=== PATIENT | male | born 1935 | race Caucasian/White ===

== ENCOUNTER 2016-10-29 12:11 | Emergency (ER) | payer OTHER, BC ==
[~2016-10-29] VITALS: Ht 167.6 cm; Wt 70.9 kg
[~2016-10-29 12:11] MED LIST: AMANTADINE100 M1 PO; AMANTADINE100 MG PO; AMLODIPINE BES2.5 MG PO; ASPIR-LOW81 MG PO; BENAZEPRIL HCL10 MG PO; CARBIDOPA-LEVO1 EAC7 PO; CARBIDOPA/LEVO1 EACH PO; CELEXA20 MG PO; CELEXA40 MG PO; CYMBALTA20 MG PO; DOLACET 5/5001 EACH PO; FINASTERIDE5 MG PO; FLOMAX0.4 MG PO; FLOVENT 22120 INHALA IH; HYDROCODON-ACE1 EAC7 PO; HYDROXYCHLOROQ200 MG PO; IBUPROFEN800 MG PO; LOTREL 2.5/1 CAPSULE PO; PRAVACHOL40 MG PO; PROAIR HFA8.5 GM IH; PROSCAR5 MG; PROTONIX40 MG PO; RANITIDINE HCL300 MG PO; TAMSULOSIN HCL0.4 MG PO; TERAZOSIN HCL2 MG PO; XALATAN2.5 ML BOTH EYES
[2016-10-29] MEDS ORDERED: NORCO 5/3251 TABLET PO (16:04)
[2016-10-29 16:31] VITALS: BP 127/55
== END 2016-10-29 16:32 | disposition home or self-care (01) ==
LOC: EME 12:11
DX: S00.83XA Contusion of other part of head, initial encounter (principal); S09.90XA Unspecified injury of head, initial encounter; M25.521 Pain in right elbow; M25.511 Pain in right shoulder; W10.9XXA Fall (on) (from) unspecified stairs and steps, initial encounter; R07.81 Pleurodynia; J44.9 Chronic obstructive pulmonary disease, unspecified; I10 Essential (primary) hypertension; K21.9 Gastro-esophageal reflux disease without esophagitis; Z87.891 Personal history of nicotine dependence
CPT/HCPCS: 70450; 71101; 73030; 73080; 99281; 99283

== ENCOUNTER 2016-12-10 16:32 | Inpatient (IN) | payer OTHER, BC ==
[~2016-12-10] VITALS: Ht 167.6 cm; Wt 74.4 kg
[~2016-12-10 16:32] MED LIST changes: -CARBIDOPA-LEVO1 EAC7 PO; +NORCO 5/3251 TABLET PO; +SINEMET CR 50-1 EACH PO
[2016-12-10 19:11] LABS: BASOPHIL COUNT 0.1 K/uL (0-0.1); EOSINOPHIL (%) 6.6 % (0-5); EOSINOPHIL COUNT 0.4 K/uL (0-0.3); HEMATOCRIT 30.1 % (38.0-50.0); IMMATURE GRANULOCYTE (%) 1.1 % (0.0-0.7); IMMATURE GRANULOCYTE COUNT 0.1 K/uL; INSTRUMENT ABS NEUTROPHIL CT 3.9 K/uL; LYMPHOCYTE COUNT 0.8 K/uL (1.0-2.8); MCHC 35.5 G/DL (30.0-36.0); MCV 90.1 FL (86-99); MONOCYTE (%) 8.5 % (3-12); MONOCYTE COUNT 0.5 K/uL (0-0.8); NEUTROPHIL (%) 68.7 % (45-76); NEUTROPHIL COUNT 3.9 K/uL (1.8-6.4); PLATELET COUNT 95 K/uL (156-360); RBC DIS.WIDTH-CV 16.6 % (11.8-14.6); RBC DIS.WIDTH-SD 54.5 % (39-53); RED BLOOD COUNT 3.34 M/uL (4.00-5.50); WHITE BLOOD COUNT 5.6 K/uL (4.1-10.2)
[2016-12-10 19:22] LABS: CHLORIDE 100 mEq/L (99-109); GLUCOSE 121 mg/dL (70-99); POTASSIUM 4.6 mEq/L (3.7-5.4); SODIUM 131 mEq/L (136-147)
[2016-12-10 19:24] LABS: ANION GAP 9 MEQ/L (2-14); TOTAL BILIRUBIN 8.3 mg/dL (0.0-1.0)
[2016-12-10 19:26] LABS: ALKALINE PHOSPHATASE 575 IU/L (3-129); GFR ESTIMATE (CALCULATED) > 59 mL/min/
[2016-12-10 19:27] LABS: UREA NITROGEN (BUN) 24 mg/dL (9-23)
[2016-12-10 20:24] LABS: BILIRUBIN SMALL; BLOOD SMALL; COLOR AMBER ((YELLOW)); GLUCOSE (STRIP) NEGATIVE; KETONES NEGATIVE; LEUKOCYTES NEGATIVE; NITRITE NEGATIVE; PROTEIN (STRIP) 100; SPECIFIC GRAVITY 1.013 (1.000-1.030)
[2016-12-10 20:32] LABS: UCUL ADDED? NO
[2016-12-10 20:34] LABS: ADD MIUA? YES
[2016-12-10 21:18] LABS: LIPASE < 3.0 U/L (1.0-51.0)
[2016-12-10 21:36] LABS: SAMPLE HEMOLYSIS CHECK 1; SAMPLE ICTERIC CHECK 2; SAMPLE LIPEMIA CHECK 0
[2016-12-10] MEDS ORDERED: TRAVATAN Z5 ML RIGHT EYE (22:30)
[2016-12-10] MEDS ORDERED: ADULT LOW DOSE81 M1 PO (22:30)
[2016-12-10] MEDS ORDERED: PRAVACHOL40 MG PO (22:31)
[2016-12-10] MEDS ORDERED: ERYTHROMYC1 APPLICAT RIGHT EYE (22:33)
[2016-12-10] MEDS ORDERED: FLONASE16 G1 BOTH NARES (22:44)
[2016-12-11 07:14] LABS: INTER. NORMALIZED RATIO 1.1; PROTHROMBIN TIME 12.1 SEC (10.2-12.9)
[2016-12-11 07:59] VITALS: BP 155/67; BP 171/67
[2016-12-11 08:13] LABS: HEMATOCRIT 29.6 % (38.0-50.0); MCH 32.1 PG (29.0-34.0); MCHC 36.1 G/DL (30.0-36.0); MCV 88.9 FL (86-99); MEAN PLAT.VOLUME 12.1 uM^3 (9.0-12.4); PLATELET COUNT 81 K/uL (156-360); RED BLOOD COUNT 3.33 M/uL (4.00-5.50); WHITE BLOOD COUNT 5.6 K/uL (4.1-10.2)
[2016-12-11 08:49] LABS: ALKALINE PHOSPHATASE 464 IU/L (3-129); ANION GAP 7 MEQ/L (2-14); CHLORIDE 102 MEQ/L (99-109); DIRECT BILIRUBIN 5.6 mg/dL (0.0-0.3); GFR ESTIMATE (CALCULATED) > 59 mL/min/; GLUCOSE 101 mg/dL (70-99); POTASSIUM 3.8 MEQ/L (3.7-5.4); SAMPLE HEMOLYSIS CHECK 0; SAMPLE ICTERIC CHECK 2; SAMPLE LIPEMIA CHECK 0; SODIUM 135 MEQ/L (136-147); TOTAL BILIRUBIN 8.8 MG/DL (0.0-1.0); UREA NITROGEN (BUN) 19 mg/dL (9-23)
[2016-12-11 11:43] VITALS: BP 114/55
[2016-12-11 15:49] LABS: ANTI-HEPATITIS A VIRUS (IGM) Nonreactive; HAV INDEX 0.15; HBSG INDEX 0.16; HPCA INDEX 0.16
[2016-12-11 15:51] VITALS: BP 157/67
[2016-12-11 15:51] LABS: ANTI-HEPATITIS B CORE (IGM) Nonreactive; HBC IgM INDEX 0.05
[2016-12-11 18:29] VITALS: BP 114/67
[2016-12-12] VITALS (7 sets, daily range): BP systolic 116–177; BP diastolic 57–80
[2016-12-12 07:58] LABS: BASOPHIL COUNT 0.1 K/uL (0-0.1); EOSINOPHIL (%) 7.5 % (0-5); EOSINOPHIL COUNT 0.4 K/uL (0-0.3); HEMATOCRIT 28.5 % (38.0-50.0); IMM.RETIC FRACTION 7.6 % (3-19); IMMATURE GRANULOCYTE (%) 0.7 % (0.0-0.7); INSTRUMENT ABS NEUTROPHIL CT 3.9 K/uL; LYMPHOCYTE COUNT 0.9 K/uL (1.0-2.8); MCH 31.7 PG (29.0-34.0); MCHC 34.7 G/DL (30.0-36.0); MCV 91.3 FL (86-99); MEAN PLAT.VOLUME 11.3 uM^3 (9.0-12.4); MONOCYTE COUNT 0.5 K/uL (0-0.8); NEUTROPHIL (%) 67.1 % (45-76); NEUTROPHIL COUNT 3.9 K/uL (1.8-6.4); PLATELET COUNT 86 K/uL (156-360); RBC DIS.WIDTH-CV 17.2 % (11.8-14.6); RED BLOOD COUNT 3.12 M/uL (4.00-5.50); RETIC HGB EQUIVALENT 37.4 (28-36); RETICULOCYTE COUNT 3.1 % (0.5-1.8); WHITE BLOOD COUNT 5.8 K/uL (4.1-10.2)
[2016-12-12 08:32] LABS: ALKALINE PHOSPHATASE 490 IU/L (3-129); ANION GAP 7 MEQ/L (2-14); CHLORIDE 100 MEQ/L (99-109); GFR ESTIMATE (CALCULATED) > 59 mL/min/; GLUCOSE 102 mg/dL (70-99); LACTATE DEHYDROGENASE 105 IU/L (20-246); POTASSIUM 3.7 MEQ/L (3.7-5.4); SAMPLE HEMOLYSIS CHECK 0; SAMPLE ICTERIC CHECK 2; SAMPLE LIPEMIA CHECK 0; SODIUM 134 MEQ/L (136-147); UREA NITROGEN (BUN) 24 mg/dL (9-23)
[2016-12-12 08:33] LABS: TOTAL BILIRUBIN 11.2 MG/DL (0.0-1.0)
[2016-12-13 06:58] LABS: ALKALINE PHOSPHATASE 438 IU/L (3-129); ANION GAP 7 MEQ/L (2-14); CHLORIDE 99 MEQ/L (99-109); GFR ESTIMATE (CALCULATED) > 59 mL/min/; GLUCOSE 100 mg/dL (70-99); POTASSIUM 3.8 MEQ/L (3.7-5.4); SAMPLE HEMOLYSIS CHECK 0; SAMPLE ICTERIC CHECK 2; SAMPLE LIPEMIA CHECK 0; SODIUM 132 MEQ/L (136-147); UREA NITROGEN (BUN) 25 mg/dL (9-23)
[2016-12-13 07:00] LABS: TOTAL BILIRUBIN 7.7 MG/DL (0.0-1.0)
[2016-12-13 08:15] VITALS: BP 123/70
[2016-12-13 11:26] VITALS: BP 136/60
[2016-12-13 16:28] LABS: HAPTOGLOBIN+ 80 mg/dL (43-212)
[2016-12-14 00:14] VITALS: BP 130/62
[2016-12-14 04:20] VITALS: BP 130/60
[2016-12-14 07:13] LABS: ALKALINE PHOSPHATASE 347 IU/L (3-129); ANION GAP 8 MEQ/L (2-14); CHLORIDE 102 MEQ/L (99-109); GFR ESTIMATE (CALCULATED) > 59 mL/min/; GLUCOSE 85 mg/dL (70-99); SAMPLE HEMOLYSIS CHECK 0; SAMPLE ICTERIC CHECK 2; SAMPLE LIPEMIA CHECK 0; SODIUM 134 MEQ/L (136-147); TOTAL BILIRUBIN 6.7 MG/DL (0.0-1.0); UREA NITROGEN (BUN) 23 mg/dL (9-23)
[2016-12-14 07:24] VITALS: BP 145/67
[2016-12-14 11:57] VITALS: BP 140/68
[2016-12-14 20:24] VITALS: BP 141/63
[2016-12-14 23:19] VITALS: BP 149/70
[2016-12-15 06:11] LABS: HEMATOCRIT 27.8 % (38.0-50.0); MCH 32.7 PG (29.0-34.0); MCHC 34.5 G/DL (30.0-36.0); MCV 94.6 FL (86-99); MEAN PLAT.VOLUME 12.3 uM^3 (9.0-12.4); PLATELET COUNT 105 K/uL (156-360); RBC DIS.WIDTH-CV 16.1 % (11.8-14.6); RBC DIS.WIDTH-SD 55.2 % (39-53); RED BLOOD COUNT 2.94 M/uL (4.00-5.50); WHITE BLOOD COUNT 7.3 K/uL (4.1-10.2)
[2016-12-15 06:42] LABS: ALKALINE PHOSPHATASE 332 IU/L (3-129); ANION GAP 6 MEQ/L (2-14); CHLORIDE 102 MEQ/L (99-109); GFR ESTIMATE (CALCULATED) > 59 mL/min/; POTASSIUM 3.9 MEQ/L (3.7-5.4); SAMPLE HEMOLYSIS CHECK 0; SAMPLE ICTERIC CHECK 2; SAMPLE LIPEMIA CHECK 0; SODIUM 133 MEQ/L (136-147); TOTAL BILIRUBIN 6.6 MG/DL (0.0-1.0); UREA NITROGEN (BUN) 23 mg/dL (9-23)
[2016-12-15 06:46] LABS: GLUCOSE 110 mg/dL (70-99)
[2016-12-15 07:22] VITALS: BP 169/74
[2016-12-15 11:57] VITALS: BP 134/61
[2016-12-15 15:55] VITALS: BP 160/71
[2016-12-16 00:07] VITALS: BP 146/68
[2016-12-16 01:00] VITALS: BP 152/69
[2016-12-16 06:19] LABS: BASOPHIL COUNT 0.1 K/uL (0-0.1); EOSINOPHIL (%) 2.5 % (0-5); EOSINOPHIL COUNT 0.3 K/uL (0-0.3); HEMATOCRIT 28.3 % (38.0-50.0); IMMATURE GRANULOCYTE (%) 0.6 % (0.0-0.7); IMMATURE GRANULOCYTE COUNT 0.1 K/uL; INSTRUMENT ABS NEUTROPHIL CT 8.3 K/uL; LYMPHOCYTE COUNT 0.9 K/uL (1.0-2.8); MCH 33.2 PG (29.0-34.0); MCHC 34.6 G/DL (30.0-36.0); MCV 95.9 FL (86-99); MEAN PLAT.VOLUME 11.9 uM^3 (9.0-12.4); MONOCYTE (%) 6.8 % (3-12); MONOCYTE COUNT 0.7 K/uL (0-0.8); NEUTROPHIL (%) 80.8 % (45-76); NEUTROPHIL COUNT 8.3 K/uL (1.8-6.4); PLATELET COUNT 109 K/uL (156-360); RBC DIS.WIDTH-CV 15.6 % (11.8-14.6); RED BLOOD COUNT 2.95 M/uL (4.00-5.50); WHITE BLOOD COUNT 10.2 K/uL (4.1-10.2)
[2016-12-16 06:47] LABS: ALKALINE PHOSPHATASE 324 IU/L (3-129); ANION GAP 8 MEQ/L (2-14); CHLORIDE 102 MEQ/L (99-109); GFR ESTIMATE (CALCULATED) > 59 mL/min/; GLUCOSE 95 mg/dL (70-99); POTASSIUM 3.7 MEQ/L (3.7-5.4); SAMPLE HEMOLYSIS CHECK 0; SAMPLE ICTERIC CHECK 1; SAMPLE LIPEMIA CHECK 0; SODIUM 134 MEQ/L (136-147); TOTAL BILIRUBIN 5.9 MG/DL (0.0-1.0); UREA NITROGEN (BUN) 14 mg/dL (9-23)
[2016-12-16 07:46] VITALS: BP 168/68
[2016-12-16 16:09] VITALS: BP 157/66
[2016-12-16 21:39] VITALS: BP 160/62
[2016-12-16 23:20] VITALS: BP 116/58
[2016-12-17 09:02] VITALS: BP 147/66
[2016-12-17 09:06] LABS: EOSINOPHIL (%) 2.2 % (0-5); EOSINOPHIL COUNT 0.2 K/uL (0-0.3); HEMATOCRIT 28.6 % (38.0-50.0); MCH 33.8 PG (29.0-34.0); MCHC 34.3 G/DL (30.0-36.0); MCV 98.6 FL (86-99); MEAN PLAT.VOLUME 11.7 uM^3 (9.0-12.4); MONOCYTE COUNT 0.8 K/uL (0-0.8); NEUTROPHIL (%) 77.4 % (45-76); NEUTROPHIL COUNT 7.2 K/uL (1.8-6.4); PLATELET COUNT 126 K/uL (156-360); RBC DIS.WIDTH-CV 14.6 % (11.8-14.6); RBC DIS.WIDTH-SD 53.3 % (39-53); WHITE BLOOD COUNT 9.3 K/uL (4.1-10.2)
[2016-12-17 09:07] LABS: BASOPHIL COUNT 0.1 K/uL (0-0.1); IMMATURE GRANULOCYTE COUNT 0.1 K/uL; INSTRUMENT ABS NEUTROPHIL CT 7.2 K/uL
[2016-12-17 09:30] LABS: ALKALINE PHOSPHATASE 280 IU/L (3-129); ANION GAP 7 MEQ/L (2-14); CHLORIDE 104 MEQ/L (99-109); GFR ESTIMATE (CALCULATED) > 59 mL/min/; GLUCOSE 138 mg/dL (70-99); POTASSIUM 3.5 MEQ/L (3.7-5.4); SAMPLE HEMOLYSIS CHECK 1; SAMPLE ICTERIC CHECK 1; SAMPLE LIPEMIA CHECK 0; SODIUM 136 MEQ/L (136-147); TOTAL BILIRUBIN 5.1 MG/DL (0.0-1.0); UREA NITROGEN (BUN) 14 mg/dL (9-23)
[2016-12-17 12:21] VITALS: BP 118/56
[2016-12-17 16:29] VITALS: BP 128/58
== END 2016-12-17 19:47 | disposition home health service (06) | DRG 445 ==
LOC: EME 16:32 → EDOF 12-11 00:43 → 5EAST 12-11 00:43 → ENRESERV 12-11 00:46 → EDOF 12-11 07:39 → ENRESERV 12-11 15:29 → 5EAST 12-11 17:52
PROVIDERS: Hospitalist; Physician Assistant; Specialist; Student in an Organized Health Care Education/Training Program
DX: K83.1 Obstruction of bile duct (principal); N17.9 Acute kidney failure, unspecified; R16.0 Hepatomegaly, not elsewhere classified; G20 Parkinson's disease; I10 Essential (primary) hypertension; J44.9 Chronic obstructive pulmonary disease, unspecified; G47.30 Sleep apnea, unspecified; K76.0 Fatty (change of) liver, not elsewhere classified; M06.9 Rheumatoid arthritis, unspecified; Z87.891 Personal history of nicotine dependence; Z91.19 Patient's noncompliance with other medical treatment and regimen; N40.0 Benign prostatic hyperplasia without lower urinary tract symptoms; D69.59 Other secondary thrombocytopenia; E87.1 Hypo-osmolality and hyponatremia; K75.9 Inflammatory liver disease, unspecified; K21.9 Gastro-esophageal reflux disease without esophagitis; Z90.49 Acquired absence of other specified parts of digestive tract
CPT/HCPCS: 36415; 71250; 74177; 74183; 74328; 76705; 80048; 80053; 80074; 80076; 81003; 82140; 83010 90; 83540 GA; 83615; 83690; 85025; 85025 91; 85027; 85045; 85610; 85730; 86301 90; 87081; 88305; 88342 TC; 94640; 94640 76; 99281; 99285; C1757; C2625; G0480; J0330; J0744; J2405; J3010; J7030

== ENCOUNTER 2016-12-23 13:07 | Emergency (ER) | payer OTHER, BC ==
[~2016-12-23] VITALS: Ht 165.1 cm; Wt 79.0 kg
[~2016-12-23 13:07] MED LIST changes: +ADULT LOW DOSE81 M1 PO; +ERYTHROMYC1 APPLICAT RIGHT EYE; +FLONASE16 G1 BOTH NARES; +TRAVATAN Z5 ML RIGHT EYE
[2016-12-23 15:26] LABS: BASOPHIL COUNT 0.1 K/uL (0-0.1); EOSINOPHIL (%) 1.8 % (0-5); EOSINOPHIL COUNT 0.2 K/uL (0-0.3); HEMATOCRIT 31.1 % (38.0-50.0); IMMATURE GRANULOCYTE (%) 0.6 % (0.0-0.7); IMMATURE GRANULOCYTE COUNT 0.1 K/uL; INSTRUMENT ABS NEUTROPHIL CT 6.5 K/uL; LYMPHOCYTE COUNT 1.3 K/uL (1.0-2.8); MCH 32.7 PG (29.0-34.0); MCHC 34.1 G/DL (30.0-36.0); MEAN PLAT.VOLUME 10.8 uM^3 (9.0-12.4); MONOCYTE (%) 9.8 % (3-12); MONOCYTE COUNT 0.9 K/uL (0-0.8); NEUTROPHIL (%) 72.3 % (45-76); NEUTROPHIL COUNT 6.5 K/uL (1.8-6.4); PLATELET COUNT 133 K/uL (156-360); RBC DIS.WIDTH-CV 13.2 % (11.8-14.6); RBC DIS.WIDTH-SD 46.3 % (39-53); RED BLOOD COUNT 3.24 M/uL (4.00-5.50)
[2016-12-23 15:31] LABS: INTER. NORMALIZED RATIO 1.3
[2016-12-23 15:34] LABS: CHLORIDE 99 mEq/L (99-109); SODIUM 133 mEq/L (136-147)
[2016-12-23 15:36] LABS: GLUCOSE 138 mg/dL (70-99)
[2016-12-23 15:37] LABS: ANION GAP 7 MEQ/L (2-14)
[2016-12-23 15:38] LABS: TOTAL BILIRUBIN 2.4 mg/dL (0.0-1.0)
[2016-12-23 15:39] LABS: ALKALINE PHOSPHATASE 249 IU/L (3-129)
[2016-12-23 15:40] LABS: GFR ESTIMATE (CALCULATED) > 59 mL/min/
[2016-12-23 15:41] LABS: UREA NITROGEN (BUN) 15 mg/dL (9-23)
[2016-12-23 15:43] LABS: LIPASE 7 U/L (1.0-51.0)
[2016-12-23 16:16] LABS: ADD MIUA? YES; BILIRUBIN NEGATIVE; BLOOD SMALL; COLOR AMBER ((YELLOW)); GLUCOSE (STRIP) NEGATIVE; KETONES 5; LEUKOCYTES NEGATIVE; NITRITE NEGATIVE; PROTEIN (STRIP) 100; SPECIFIC GRAVITY 1.018 (1.000-1.030)
[2016-12-23 16:23] LABS: BACTERIA RARE /HPF; EPITHELIAL CELLS NONE SEEN /HPF; MUCUS TRACE /LPF; UCUL ADDED? NO; WHITE BLOOD CELLS 0-5 /HPF (0-5)
[2016-12-23 18:56] VITALS: BP 134/57
== END 2016-12-23 19:00 ==
LOC: EME 13:07
PROVIDERS: Emergency Medicine
DX: R50.9 Fever, unspecified (principal); Z98.890 Other specified postprocedural states; I10 Essential (primary) hypertension; J44.9 Chronic obstructive pulmonary disease, unspecified; K21.9 Gastro-esophageal reflux disease without esophagitis; E78.5 Hyperlipidemia, unspecified; F32.9 Major depressive disorder, single episode, unspecified; F41.9 Anxiety disorder, unspecified; G20 Parkinson's disease; Z87.891 Personal history of nicotine dependence; Z90.49 Acquired absence of other specified parts of digestive tract
CPT/HCPCS: 71010; 80053; 81003; 83605; 83690; 85025; 85610; 99281; 99284

== ENCOUNTER → 2017-01-14 | Outpatient (CLI) | payer OTHER, BC ==
[~2017-01-14] VITALS: Ht 160 cm; Wt 64.5 kg
== END | disposition home or self-care (01) ==
LOC: OPR 09:40 → EDSTATUS 10:00 → OPR 10:00
PROC: BF111ZZ Fluoroscopy of Biliary and Pancreatic Ducts using Low Osmolar Contrast (ICD-10-PCS; principal; 2017-01-14)
PROC: 0FH Hepatobiliary System and Pancreas, Insertion (ICD-10-PCS; principal; 2017-01-14)
PROC: 0FB13ZX Excision of Right Lobe Liver, Percutaneous Approach, Diagnostic (ICD-10-PCS; principal; 2017-01-14)
DX: R16.0 Hepatomegaly, not elsewhere classified (principal); I10 Essential (primary) hypertension; K21.9 Gastro-esophageal reflux disease without esophagitis; G20 Parkinson's disease; M06.9 Rheumatoid arthritis, unspecified; G47.30 Sleep apnea, unspecified; Z86.19 Personal history of other infectious and parasitic diseases; Z87.11 Personal history of peptic ulcer disease; Z95.828 Presence of other vascular implants and grafts; Z87.891 Personal history of nicotine dependence; Z82.49 Family history of ischemic heart disease and other diseases of the circulatory system; Z91.040 Latex allergy status; Z88.8 Allergy status to other drugs, medicaments and biological substances; J44.9 Chronic obstructive pulmonary disease, unspecified; N40.0 Benign prostatic hyperplasia without lower urinary tract symptoms; I25.10 Atherosclerotic heart disease of native coronary artery without angina pectoris; K86.1 Other chronic pancreatitis
CPT/HCPCS: 77012; 88307; J3010

== ENCOUNTER → 2017-02-10 | Outpatient (CLI) | payer OTHER, BC ==
[~2017-02-10] VITALS: Ht 160 cm; Wt 64.5 kg
== END | disposition home or self-care (01) ==
LOC: AMB 08:00
DX: K83.1 Obstruction of bile duct (principal); C22.1 Intrahepatic bile duct carcinoma; Z90.49 Acquired absence of other specified parts of digestive tract
CPT/HCPCS: 74328; 87081; C1769; J0330; J1100; J2405; J3010

== ENCOUNTER 2017-02-20 14:57 | Inpatient (IN) | payer OTHER, BC ==
[~2017-02-20] VITALS: Ht 165.1 cm; Wt 65.3 kg
[2017-02-20 00:30] VITALS: BP 174/69
[2017-02-20 16:51] LABS: BASOPHIL COUNT 0.1 K/uL (0-0.1); EOSINOPHIL (%) 0.8 % (0-5); EOSINOPHIL COUNT 0.1 K/uL (0-0.3); HEMATOCRIT 26.7 % (38.0-50.0); IMMATURE GRANULOCYTE (%) 0.7 % (0.0-0.7); IMMATURE GRANULOCYTE COUNT 0.1 K/uL; INSTRUMENT ABS NEUTROPHIL CT 12.8 K/uL; LYMPHOCYTE COUNT 1.7 K/uL (1.0-2.8); MCH 31.1 PG (29.0-34.0); MCHC 33.7 G/DL (30.0-36.0); MCV 92.4 FL (86-99); MEAN PLAT.VOLUME 10.2 uM^3 (9.0-12.4); MONOCYTE (%) 8.1 % (3-12); MONOCYTE COUNT 1.3 K/uL (0-0.8); NEUTROPHIL (%) 79.6 % (45-76); NEUTROPHIL COUNT 12.8 K/uL (1.8-6.4); PLATELET COUNT 149 K/uL (156-360); RBC DIS.WIDTH-CV 12.4 % (11.8-14.6); RBC DIS.WIDTH-SD 42.5 % (39-53); RED BLOOD COUNT 2.89 M/uL (4.00-5.50); WHITE BLOOD COUNT 16.1 K/uL (4.1-10.2)
[2017-02-20 17:02] LABS: CHLORIDE 98 mEq/L (99-109); POTASSIUM 4.2 mEq/L (3.7-5.4); SODIUM 131 mEq/L (136-147)
[2017-02-20 17:05] LABS: GLUCOSE 144 mg/dL (70-99)
[2017-02-20 17:08] LABS: ALKALINE PHOSPHATASE 276 IU/L (3-129); ANION GAP 9 MEQ/L (2-14); GFR ESTIMATE (CALCULATED) > 59 mL/min/
[2017-02-20 17:09] LABS: UREA NITROGEN (BUN) 22 mg/dL (9-23)
[2017-02-20 17:10] LABS: DIRECT BILIRUBIN 0.7 mg/dL (0.0-0.3)
[2017-02-20 17:51] LABS: LIPASE < 3.0 U/L (1.0-51.0)
[2017-02-20 18:21] LABS: ADD MIUA? YES; BILIRUBIN NEGATIVE; BLOOD SMALL; COLOR YELLOW ((YELLOW)); GLUCOSE (STRIP) NEGATIVE; KETONES 5; LEUKOCYTES NEGATIVE; NITRITE NEGATIVE; PROTEIN (STRIP) 30; SPECIFIC GRAVITY 1.015 (1.000-1.030)
[2017-02-20 18:23] LABS: CREATINE KINASE 19 IU/L (1-294)
[2017-02-20 18:31] LABS: BACTERIA RARE /HPF; EPITHELIAL CELLS NONE SEEN /HPF; HYALINE CASTS 0-5 /LPF; MUCUS TRACE /LPF; RED BLOOD CELLS 0-5 /HPF (0-5); WHITE BLOOD CELLS 0-5 /HPF (0-5)
[2017-02-20 18:49] LABS: INFLUENZA A VIRAL ANTIGEN NEGATIVE; INFLUENZA B VIRAL ANTIGEN NEGATIVE
[2017-02-21 00:30] VITALS: BP 174/69
[2017-02-21 03:58] VITALS: BP 129/57
[2017-02-21 06:30] LABS: EOSINOPHIL (%) 0.9 % (0-5); EOSINOPHIL COUNT 0.1 K/uL (0-0.3); HEMATOCRIT 30.1 % (38.0-50.0); IMMATURE GRANULOCYTE (%) 0.6 % (0.0-0.7); IMMATURE GRANULOCYTE COUNT 0.1 K/uL; INSTRUMENT ABS NEUTROPHIL CT 9.8 K/uL; LYMPHOCYTE COUNT 0.9 K/uL (1.0-2.8); MCH 32.2 PG (29.0-34.0); MCHC 34.9 G/DL (30.0-36.0); MCV 92.3 FL (86-99); MEAN PLAT.VOLUME 10.3 uM^3 (9.0-12.4); MONOCYTE (%) 5.7 % (3-12); MONOCYTE COUNT 0.7 K/uL (0-0.8); NEUTROPHIL COUNT 9.8 K/uL (1.8-6.4); PLATELET COUNT 111 K/uL (156-360); RBC DIS.WIDTH-CV 12.5 % (11.8-14.6); RED BLOOD COUNT 3.26 M/uL (4.00-5.50); WHITE BLOOD COUNT 11.5 K/uL (4.1-10.2)
[2017-02-21 06:57] LABS: ANION GAP 9 MEQ/L (2-14); CHLORIDE 102 MEQ/L (99-109); DIRECT BILIRUBIN 0.6 mg/dL (0.0-0.3); GFR ESTIMATE (CALCULATED) > 59 mL/min/; SAMPLE HEMOLYSIS CHECK 0; SAMPLE ICTERIC CHECK 0; SAMPLE LIPEMIA CHECK 0; SODIUM 135 MEQ/L (136-147); UREA NITROGEN (BUN) 16 mg/dL (9-23)
[2017-02-21 07:13] LABS: ALKALINE PHOSPHATASE 232 IU/L (3-129); GLUCOSE 101 mg/dL (70-99); TOTAL BILIRUBIN 1.1 MG/DL (0.0-1.0)
[2017-02-21 07:54] VITALS: BP 150/67
[2017-02-21 11:29] VITALS: BP 128/55
[2017-02-21 15:52] VITALS: BP 141/60
[2017-02-21 18:01] LABS: ADD MIUA? YES; BILIRUBIN NEGATIVE; BLOOD SMALL; COLOR YELLOW ((YELLOW)); GLUCOSE (STRIP) NEGATIVE; KETONES 5; LEUKOCYTES NEGATIVE; NITRITE NEGATIVE; PROTEIN (STRIP) 30; SPECIFIC GRAVITY 1.023 (1.000-1.030)
[2017-02-21 18:09] LABS: BACTERIA RARE /HPF; EPITHELIAL CELLS RARE /HPF; MUCUS TRACE /LPF; UCUL ADDED? NO; WHITE BLOOD CELLS 0-5 /HPF (0-5)
[2017-02-21 18:48] VITALS: BP 137/63
[2017-02-22 00:29] VITALS: BP 150/65
[2017-02-22 04:00] VITALS: BP 148/36
[2017-02-22 06:12] LABS: BASOPHIL COUNT 0.1 K/uL (0-0.1); EOSINOPHIL (%) 2.2 % (0-5); EOSINOPHIL COUNT 0.2 K/uL (0-0.3); HEMATOCRIT 29.7 % (38.0-50.0); IMMATURE GRANULOCYTE (%) 0.4 % (0.0-0.7); INSTRUMENT ABS NEUTROPHIL CT 5.7 K/uL; MCH 30.9 PG (29.0-34.0); MCHC 33.7 G/DL (30.0-36.0); MCV 91.7 FL (86-99); MEAN PLAT.VOLUME 10.1 uM^3 (9.0-12.4); MONOCYTE (%) 9.2 % (3-12); MONOCYTE COUNT 0.7 K/uL (0-0.8); NEUTROPHIL (%) 74.3 % (45-76); NEUTROPHIL COUNT 5.7 K/uL (1.8-6.4); PLATELET COUNT 108 K/uL (156-360); RBC DIS.WIDTH-CV 12.2 % (11.8-14.6); RBC DIS.WIDTH-SD 41.3 % (39-53); RED BLOOD COUNT 3.24 M/uL (4.00-5.50); WHITE BLOOD COUNT 7.7 K/uL (4.1-10.2)
[2017-02-22 07:13] LABS: ANION GAP 8 MEQ/L (2-14); CHLORIDE 101 MEQ/L (99-109); GFR ESTIMATE (CALCULATED) > 59 mL/min/; GLUCOSE 109 mg/dL (70-99); POTASSIUM 3.9 MEQ/L (3.7-5.4); SAMPLE HEMOLYSIS CHECK 1; SAMPLE ICTERIC CHECK 0; SAMPLE LIPEMIA CHECK 0; SODIUM 135 MEQ/L (136-147); TOTAL BILIRUBIN 0.9 MG/DL (0.0-1.0); UREA NITROGEN (BUN) 12 mg/dL (9-23)
[2017-02-22 07:14] LABS: ALKALINE PHOSPHATASE 301 IU/L (3-129)
[2017-02-22 07:49] VITALS: BP 143/69
[2017-02-22 12:45] VITALS: BP 133/64
[2017-02-22 15:56] VITALS: BP 166/69
[2017-02-22 23:46] VITALS: BP 150/65
[2017-02-23 06:30] LABS: BASOPHIL COUNT 0.1 K/uL (0-0.1); EOSINOPHIL (%) 3.9 % (0-5); EOSINOPHIL COUNT 0.3 K/uL (0-0.3); HEMATOCRIT 31.9 % (38.0-50.0); IMMATURE GRANULOCYTE (%) 0.3 % (0.0-0.7); INSTRUMENT ABS NEUTROPHIL CT 4.5 K/uL; LYMPHOCYTE COUNT 1.3 K/uL (1.0-2.8); MCH 30.7 PG (29.0-34.0); MCHC 33.5 G/DL (30.0-36.0); MCV 91.7 FL (86-99); MEAN PLAT.VOLUME 10.4 uM^3 (9.0-12.4); MONOCYTE (%) 7.9 % (3-12); MONOCYTE COUNT 0.5 K/uL (0-0.8); NEUTROPHIL (%) 67.2 % (45-76); NEUTROPHIL COUNT 4.5 K/uL (1.8-6.4); RBC DIS.WIDTH-CV 12.1 % (11.8-14.6); RED BLOOD COUNT 3.48 M/uL (4.00-5.50); WHITE BLOOD COUNT 6.7 K/uL (4.1-10.2)
[2017-02-23 06:51] LABS: PLATELET COUNT 145 K/uL (156-360)
[2017-02-23 06:53] VITALS: BP 131/61
[2017-02-23 07:13] LABS: ANION GAP 9 MEQ/L (2-14); CHLORIDE 100 MEQ/L (99-109); GFR ESTIMATE (CALCULATED) > 59 mL/min/; GLUCOSE 121 mg/dL (70-99); POTASSIUM 3.8 MEQ/L (3.7-5.4); SAMPLE HEMOLYSIS CHECK 0; SAMPLE ICTERIC CHECK 0; SAMPLE LIPEMIA CHECK 0; SODIUM 135 MEQ/L (136-147); UREA NITROGEN (BUN) 12 mg/dL (9-23)
[2017-02-23 15:12] VITALS: BP 142/67
[2017-02-24 00:15] VITALS: BP 152/82
[2017-02-24 07:18] VITALS: BP 148/67
[2017-02-24] MEDS ORDERED: CIPROFLOXACIN500 M1 PO (11:02)
[2017-02-24] MEDS ORDERED: METRONIDAZOLE500 MG PO (11:02)
[2017-02-27] MEDS ORDERED: SYMBICORT60 INHALAT IH (15:34)
[2017-02-28] MEDS ORDERED: ASPIR-LOW81 MG PO (09:06)
== END 2017-02-24 12:42 | disposition home health service (06) | DRG 445 ==
LOC: EME 14:57 → 5SOUTH 22:14 → EDOF 22:14 → ENRESERV 22:15 → 5SOUTH 02-21 00:28 → ENPENDDIS 02-24 → 5SOUTH 02-24 12:42
PROVIDERS: Hospitalist; Internal Medicine; Physician Assistant
DX: K83.0 Cholangitis (principal); E87.1 Hypo-osmolality and hyponatremia; E83.51 Hypocalcemia; C22.1 Intrahepatic bile duct carcinoma; E78.00 Pure hypercholesterolemia, unspecified; I10 Essential (primary) hypertension; E78.5 Hyperlipidemia, unspecified; F39 Unspecified mood [affective] disorder; G20 Parkinson's disease; M06.9 Rheumatoid arthritis, unspecified; N40.0 Benign prostatic hyperplasia without lower urinary tract symptoms; J44.9 Chronic obstructive pulmonary disease, unspecified; K21.9 Gastro-esophageal reflux disease without esophagitis; F32.9 Major depressive disorder, single episode, unspecified; F41.9 Anxiety disorder, unspecified; I71.4 Abdominal aortic aneurysm, without rupture; Z87.891 Personal history of nicotine dependence
CPT/HCPCS: 36415; 71010; 74177; 80048; 80053; 80076; 81003; 82105 90; 82550; 83605; 83690; 85025; 86301 90; 87040; 87502; 87801; 94640; 94640 76; 99202; 99281; 99285; J0696; J1644; J1885; J2543; J3010; J7030; J7050; S0028; S0030

== ENCOUNTER 2017-03-16 14:12 | Inpatient (IN) | payer OTHER, BC ==
[~2017-03-16] VITALS: Ht 165.1 cm; Wt 63.6 kg
[~2017-03-16 14:12] MED LIST changes: +CIPROFLOXACIN500 M1 PO; +METRONIDAZOLE500 MG PO; +SYMBICORT60 INHALAT IH
[2017-03-16 16:43] LABS: EOSINOPHIL (%) 0 % (0-5); HEMATOCRIT 31.8 % (38.0-50.0); IMMATURE GRANULOCYTE (%) 0.5 % (0.0-0.7); IMMATURE GRANULOCYTE COUNT 0.1 K/uL; INSTRUMENT ABS NEUTROPHIL CT 9.3 K/uL; LYMPHOCYTE COUNT 0.7 K/uL (1.0-2.8); MCH 31.3 PG (29.0-34.0); MCHC 35.2 G/DL (30.0-36.0); MCV 88.8 FL (86-99); MONOCYTE (%) 9.2 % (3-12); NEUTROPHIL (%) 83.7 % (45-76); NEUTROPHIL COUNT 9.3 K/uL (1.8-6.4); RBC DIS.WIDTH-CV 12.2 % (11.8-14.6); RBC DIS.WIDTH-SD 40.2 % (39-53); RED BLOOD COUNT 3.58 M/uL (4.00-5.50); WHITE BLOOD COUNT 11.1 K/uL (4.1-10.2)
[2017-03-16 16:51] LABS: CHLORIDE 98 mEq/L (99-109); POTASSIUM 3.4 mEq/L (3.7-5.4); SODIUM 128 mEq/L (136-147)
[2017-03-16 16:53] LABS: GLUCOSE 144 mg/dL (70-99)
[2017-03-16 16:54] LABS: ANION GAP 6 MEQ/L (2-14)
[2017-03-16 16:55] LABS: TOTAL BILIRUBIN 1.1 mg/dL (0.0-1.0)
[2017-03-16 16:55] LABS: ADD MIUA? YES; BILIRUBIN NEGATIVE; BLOOD SMALL; COLOR AMBER ((YELLOW)); GLUCOSE (STRIP) NEGATIVE; KETONES 5; LEUKOCYTES NEGATIVE; NITRITE NEGATIVE; PROTEIN (STRIP) 100; SPECIFIC GRAVITY 1.018 (1.000-1.030)
[2017-03-16 16:56] LABS: ALKALINE PHOSPHATASE 283 IU/L (3-129)
[2017-03-16 16:57] LABS: GFR ESTIMATE (CALCULATED) > 59 mL/min/
[2017-03-16 16:58] LABS: UREA NITROGEN (BUN) 16 mg/dL (9-23)
[2017-03-16 16:58] LABS: BACTERIA RARE /HPF; EPITHELIAL CELLS RARE /HPF; MUCUS TRACE /LPF; RED BLOOD CELLS 20-30 /HPF (0-5); UCUL ADDED? NO; WHITE BLOOD CELLS 0-5 /HPF (0-5)
[2017-03-16 17:22] LABS: MEAN PLAT.VOLUME 10.6 uM^3 (9.0-12.4); PLAT.SUFFICIENCY DECREASED
[2017-03-16 18:05] LABS: PLATELET COUNT 107 K/uL (156-360)
[2017-03-16] MEDS ORDERED: LOW DOSE ASPIRI81 M1 PO (23:03)
[2017-03-16] MEDS ORDERED: MOTRIN800 MG PO (23:04)
[2017-03-16] MEDS ORDERED: HYDROCODON-ACE1 EAC7 PO (23:04)
[2017-03-16 23:33] LABS: BASE EXCESS 2.2 mEq/L (-3 to +3); BICARBONATE 26.5 mEq/L (22-26); CARBOXY HGB 1.4 % (0-5); COMMENTS - BLOOD GASES A+C+; DEVICE ROOM AIR; FI02 0.21 %; METHEMOGLOBIN 0.4 % (0-1.5); PCO2 39 mm Hg (35-45); PO2 76 mm Hg (80-100); SITE RR; pH 7.44 (7.35-7.45)
[2017-03-16 23:34] LABS: TOTAL RESP RATE 15 resp/min
[2017-03-16 23:58] LABS: CHLORIDE 105 mEq/L (99-109); POTASSIUM 3.5 mEq/L (3.7-5.4)
[2017-03-16 23:59] LABS: GLUCOSE 125 mg/dL (70-99)
[2017-03-17 00:01] LABS: ANION GAP 5 MEQ/L (2-14)
[2017-03-17 00:03] LABS: GFR ESTIMATE (CALCULATED) > 59 mL/min/
[2017-03-17 00:04] LABS: UREA NITROGEN (BUN) 13 mg/dL (9-23)
[2017-03-17 00:07] LABS: SODIUM 135 mEq/L (136-147)
[2017-03-17 00:23] VITALS: BP 162/95
[2017-03-17 04:09] VITALS: BP 176/74
[2017-03-17 06:08] VITALS: BP 132/72
[2017-03-17 07:19] VITALS: BP 151/69
[2017-03-17 09:22] LABS: BASOPHIL COUNT 0.1 K/uL (0-0.1); EOSINOPHIL (%) 1.4 % (0-5); EOSINOPHIL COUNT 0.1 K/uL (0-0.3); HEMATOCRIT 31.4 % (38.0-50.0); IMMATURE GRANULOCYTE (%) 0.3 % (0.0-0.7); INSTRUMENT ABS NEUTROPHIL CT 4.5 K/uL; LYMPHOCYTE COUNT 0.9 K/uL (1.0-2.8); MCH 30.7 PG (29.0-34.0); MCHC 33.8 G/DL (30.0-36.0); MEAN PLAT.VOLUME 10.6 uM^3 (9.0-12.4); MONOCYTE (%) 11.1 % (3-12); MONOCYTE COUNT 0.7 K/uL (0-0.8); NEUTROPHIL COUNT 4.5 K/uL (1.8-6.4); PLATELET COUNT 115 K/uL (156-360); RBC DIS.WIDTH-CV 12.5 % (11.8-14.6); RBC DIS.WIDTH-SD 41.2 % (39-53); RED BLOOD COUNT 3.45 M/uL (4.00-5.50); WHITE BLOOD COUNT 6.3 K/uL (4.1-10.2)
[2017-03-17 15:08] VITALS: BP 148/67
[2017-03-18 00:09] VITALS: BP 162/68
[2017-03-18 06:19] LABS: EOSINOPHIL (%) 3.4 % (0-5); EOSINOPHIL COUNT 0.2 K/uL (0-0.3); HEMATOCRIT 30.8 % (38.0-50.0); IMMATURE GRANULOCYTE (%) 0.4 % (0.0-0.7); INSTRUMENT ABS NEUTROPHIL CT 3.7 K/uL; LYMPHOCYTE COUNT 0.6 K/uL (1.0-2.8); MCH 31.4 PG (29.0-34.0); MCHC 34.1 G/DL (30.0-36.0); MCV 92.2 FL (86-99); MEAN PLAT.VOLUME 10.9 uM^3 (9.0-12.4); MONOCYTE COUNT 0.4 K/uL (0-0.8); NEUTROPHIL (%) 74.7 % (45-76); NEUTROPHIL COUNT 3.7 K/uL (1.8-6.4); PLATELET COUNT 95 K/uL (156-360); RBC DIS.WIDTH-CV 12.6 % (11.8-14.6); RBC DIS.WIDTH-SD 42.8 % (39-53); RED BLOOD COUNT 3.34 M/uL (4.00-5.50)
[2017-03-18 06:34] LABS: INTER. NORMALIZED RATIO 1.1; PROTHROMBIN TIME 12.8 SEC (10.2-12.9)
[2017-03-18 06:51] LABS: ALKALINE PHOSPHATASE 205 IU/L (3-129); ANION GAP 7 MEQ/L (2-14); CHLORIDE 104 MEQ/L (99-109); GFR ESTIMATE (CALCULATED) > 59 mL/min/; GLUCOSE 127 mg/dL (70-99); POTASSIUM 4.1 MEQ/L (3.7-5.4); SAMPLE HEMOLYSIS CHECK 0; SAMPLE ICTERIC CHECK 0; SAMPLE LIPEMIA CHECK 0; SODIUM 136 MEQ/L (136-147); TOTAL BILIRUBIN 0.5 MG/DL (0.0-1.0); UREA NITROGEN (BUN) 12 mg/dL (9-23)
[2017-03-18 07:50] VITALS: BP 167/73
[2017-03-18 16:16] VITALS: BP 148/69
[2017-03-18 23:34] VITALS: BP 161/71
[2017-03-19 06:58] LABS: MCHC 34.2 G/DL (30.0-36.0); MCV 90.6 FL (86-99); MEAN PLAT.VOLUME 10.6 uM^3 (9.0-12.4); PLATELET COUNT 123 K/uL (156-360); RBC DIS.WIDTH-CV 12.4 % (11.8-14.6); RBC DIS.WIDTH-SD 41.1 % (39-53); RED BLOOD COUNT 3.42 M/uL (4.00-5.50); WHITE BLOOD COUNT 5.2 K/uL (4.1-10.2)
[2017-03-19 07:09] VITALS: BP 172/73
[2017-03-19 07:18] LABS: ANION GAP 10 MEQ/L (2-14); CHLORIDE 101 MEQ/L (99-109); GFR ESTIMATE (CALCULATED) > 59 mL/min/; GLUCOSE 125 mg/dL (70-99); POTASSIUM 3.9 MEQ/L (3.7-5.4); SAMPLE HEMOLYSIS CHECK 0; SAMPLE ICTERIC CHECK 0; SAMPLE LIPEMIA CHECK 0; SODIUM 138 MEQ/L (136-147); TOTAL BILIRUBIN 0.5 MG/DL (0.0-1.0); UREA NITROGEN (BUN) 10 mg/dL (9-23)
[2017-03-19 07:25] LABS: ALKALINE PHOSPHATASE 260 IU/L (3-129)
[2017-03-19 15:15] VITALS: BP 152/69
[2017-03-19 23:49] VITALS: BP 145/67
[2017-03-20 07:07] VITALS: BP 137/63
[2017-03-20 15:19] VITALS: BP 132/61
[2017-03-20 23:59] VITALS: BP 146/66
[2017-03-21 07:14] VITALS: BP 170/74
[2017-03-21] MEDS ORDERED: CIPROFLOXACIN500 M1 PO (11:04)
== END 2017-03-21 14:11 | disposition home health service (06) | DRG 444 ==
LOC: EME 14:12 → EDOF 22:51 → 5SOUTH 22:51 → ENRESERV 22:53 → 5SOUTH 03-17 → ENPENDDIS 03-21 → 5SOUTH 03-21 14:11
PROVIDERS: Emergency Medicine; Hospitalist; Physician Assistant; Specialist
DX: K83.0 Cholangitis (principal); R78.81 Bacteremia; B96.20 Unspecified Escherichia coli [E. coli] as the cause of diseases classified elsewhere; G93.40 Encephalopathy, unspecified; C22.1 Intrahepatic bile duct carcinoma; R91.1 Solitary pulmonary nodule; E87.1 Hypo-osmolality and hyponatremia; E86.0 Dehydration; E87.6 Hypokalemia; I10 Essential (primary) hypertension; K21.9 Gastro-esophageal reflux disease without esophagitis; G20 Parkinson's disease; F32.9 Major depressive disorder, single episode, unspecified; J44.9 Chronic obstructive pulmonary disease, unspecified; E78.5 Hyperlipidemia, unspecified; F41.9 Anxiety disorder, unspecified; G47.30 Sleep apnea, unspecified; M06.9 Rheumatoid arthritis, unspecified; N40.0 Benign prostatic hyperplasia without lower urinary tract symptoms; Z86.010 Personal history of colon polyps; Z95.810 Presence of automatic (implantable) cardiac defibrillator; Z87.891 Personal history of nicotine dependence; Z79.82 Long term (current) use of aspirin
CPT/HCPCS: 36600; 70450; 71010; 74176; 80048; 80048 91; 80053; 81003; 82140; 82607; 82728; 82746; 82803; 83605; 84466; 85025; 85027; 85610; 87040; 87077; 87186; 87801; 94640; 94640 76; 99202; 99281; 99284; J1644; J2543; J3480; J7030; J7050

== ENCOUNTER 2017-05-24 12:17 | Emergency (ER) | payer OTHER, BC ==
[~2017-05-24] VITALS: Ht 165.1 cm; Wt 61.1 kg
[~2017-05-24 12:17] MED LIST changes: +AMLODIPINE BESYL5 MG PO; +ARTIFICIAL TEAR1510 BOTH EYES; +BISACODYL5 MG PO; +CEFTRIAXONE2 G1 IV; +CO Q-10100 MG PO; +LOW DOSE ASPIRI81 M1 PO; +MOTRIN800 MG PO; +MYCOSTATIN 100,60 ML MM; +POLYETHYLENE GL17 GM PO; +PREDNISONE10 MG PO; +PREDNISONE20 MG PO
[2017-05-24 13:39] LABS: BASOPHIL (%) 0.5 % (0-1); EOSINOPHIL (%) 1.5 % (0-5); EOSINOPHIL COUNT 0.1 K/uL (0-0.3); HEMATOCRIT 27.8 % (38.0-50.0); HEMOGLOBIN 9.4 G/DL (12.5-16.6); IMMATURE GRANULOCYTE (%) 1.1 % (0.0-0.7); LYMPHOCYTE (%) 7.6 % (15-42); LYMPHOCYTE COUNT 0.7 K/uL (1.0-2.8); MCH 30.7 PG (29.0-34.0); MCHC 33.8 G/DL (30.0-36.0); MCV 90.8 FL (86-99); MONOCYTE COUNT 0.5 K/uL (0-0.8); NEUTROPHIL (%) 83.3 % (45-76); NEUTROPHIL COUNT 7.3 K/uL (1.8-6.4); PLATELET COUNT 123 K/uL (156-360); RBC DIS.WIDTH-CV 13.8 % (11.8-14.6); RBC DIS.WIDTH-SD 46.1 % (39-53); RED BLOOD COUNT 3.06 M/uL (4.00-5.50); WHITE BLOOD COUNT 8.8 K/uL (4.1-10.2)
[2017-05-24 13:50] LABS: CHLORIDE 101 mEq/L (99-109); POTASSIUM 4.5 mEq/L (3.7-5.4); SODIUM 134 mEq/L (136-147)
[2017-05-24 13:52] LABS: GLUCOSE 143 mg/dL (70-99)
[2017-05-24 13:55] LABS: CREATININE 0.8 mg/dL (0.6-1.3); GFR ESTIMATE (CALCULATED) > 59 mL/min/ (58.99-99999)
[2017-05-24 13:56] LABS: UREA NITROGEN (BUN) 20 mg/dL (9-23)
[2017-05-24 14:07] LABS: APPEARANCE CLEAR ((CLEAR)); BILIRUBIN NEGATIVE; BLOOD NEGATIVE; COLOR YELLOW ((YELLOW)); GLUCOSE (STRIP) NEGATIVE; KETONES NEGATIVE; LEUKOCYTES NEGATIVE; NITRITE NEGATIVE; PROTEIN (STRIP) NEGATIVE; SPECIFIC GRAVITY 1.011 (1.000-1.030); UCUL ADDED? NO; UROBILINOGEN 0.2 MG/DL (0.2-1.0)
[2017-05-24 14:32] LABS: AMPHETAMINE NEGATIVE (500 ng/mL); BARBITURATES NEGATIVE (200 ng/mL); BENZODIAZEPINES NEGATIVE (150 ng/mL); BUPRENORPHINE NEGATIVE (10 ng/mL); COCAINE NEGATIVE (150 ng/mL); METHADONE NEGATIVE (200 ng/mL); METHAMPHETAMINE NEGATIVE (500 ng/mL); OPIATES (MORPHINE) NEGATIVE (100 ng/mL); OXYCODONE PRESUMPTIVE POSITIVE (100 ng/mL); PHENCYCLIDINE NEGATIVE (25 ng/mL); PROPOXYPHENE NEGATIVE (300 ng/mL); THC CANNABINOIDS NEGATIVE (50 ng/mL); TRICYCLIC ANTIDEPRESSANTS NEGATIVE (300 ng/mL)
[2017-05-24 15:24] VITALS: BP 106/48
== END 2017-05-24 15:24 ==
LOC: EME 12:17
PROVIDERS: Emergency Medicine
DX: T40.2X1A Poisoning by other opioids, accidental (unintentional), initial encounter (principal); G20 Parkinson's disease; I10 Essential (primary) hypertension; J44.9 Chronic obstructive pulmonary disease, unspecified; E11.9 Type 2 diabetes mellitus without complications; E78.5 Hyperlipidemia, unspecified; I71.4 Abdominal aortic aneurysm, without rupture; K21.9 Gastro-esophageal reflux disease without esophagitis; F41.9 Anxiety disorder, unspecified; F32.9 Major depressive disorder, single episode, unspecified; Y92.129 Unspecified place in nursing home as the place of occurrence of the external cause; Z87.891 Personal history of nicotine dependence; Z79.82 Long term (current) use of aspirin; Z88.8 Allergy status to other drugs, medicaments and biological substances
CPT/HCPCS: 71045; 80048; 81003; 82948; 83605; 85025; 87040; 99281; 99285; J7040

== ENCOUNTER → 2017-06-09 | Outpatient (CLI) | payer OTHER, BC | END | disposition home or self-care (01) | LOC: RAD 06-08 13:30 → MRI 13:18 → RAD 13:30 | DX: M47.892 Other spondylosis, cervical region (principal); M47.817 Spondylosis without myelopathy or radiculopathy, lumbosacral region; M46.44 Discitis, unspecified, thoracic region | CPT/HCPCS: 72156; 72158 ==

== ENCOUNTER 2017-07-17 11:47 | Emergency (ER) | payer OTHER, BC ==
[~2017-07-17] VITALS: Ht 165.1 cm; Wt 59.0 kg
[~2017-07-17 11:47] MED LIST changes: +K-DUR20 MEQ PO; +LISINOPRIL10 MG PO; +SENNA8.6 MG PO
[2017-07-17 13:31] LABS: BASOPHIL (%) 1.1 % (0-1); BASOPHIL COUNT 0.1 K/uL (0-0.1); EOSINOPHIL (%) 0.9 % (0-5); EOSINOPHIL COUNT 0.1 K/uL (0-0.3); HEMATOCRIT 29.1 % (38.0-50.0); HEMOGLOBIN 9.7 G/DL (12.5-16.6); IMMATURE GRANULOCYTE (%) 0.3 % (0.0-0.7); LYMPHOCYTE (%) 11.4 % (15-42); LYMPHOCYTE COUNT 0.8 K/uL (1.0-2.8); MCH 30.6 PG (29.0-34.0); MCHC 33.3 G/DL (30.0-36.0); MCV 91.8 FL (86-99); MONOCYTE (%) 8.8 % (3-12); MONOCYTE COUNT 0.6 K/uL (0-0.8); NEUTROPHIL (%) 77.5 % (45-76); NEUTROPHIL COUNT 5.1 K/uL (1.8-6.4); PLATELET COUNT 176 K/uL (156-360); RBC DIS.WIDTH-CV 12.7 % (11.8-14.6); RBC DIS.WIDTH-SD 42.6 % (39-53); RED BLOOD COUNT 3.17 M/uL (4.00-5.50); WHITE BLOOD COUNT 6.6 K/uL (4.1-10.2)
[2017-07-17 13:37] LABS: INTER. NORMALIZED RATIO 1.1
[2017-07-17 13:39] LABS: ALBUMIN 3.3 g/dL (3.2-4.8); CHLORIDE 105 mEq/L (99-109); POTASSIUM 4.3 mEq/L (3.7-5.4); SODIUM 142 mEq/L (136-147)
[2017-07-17 13:41] LABS: GLUCOSE 113 mg/dL (70-99)
[2017-07-17 13:42] LABS: TOTAL PROTEIN 7.2 g/dL (6.4-8.3)
[2017-07-17 13:43] LABS: TOTAL BILIRUBIN 0.8 mg/dL (0.0-1.0)
[2017-07-17 13:45] LABS: ALKALINE PHOSPHATASE 431 IU/L (3-129); GFR ESTIMATE (CALCULATED) > 59 mL/min/ (58.99-99999)
[2017-07-17 13:46] LABS: UREA NITROGEN (BUN) 21 mg/dL (9-23)
[2017-07-17 13:47] LABS: AST (GOT) 49 IU/L (2-34)
[2017-07-17 13:48] LABS: ALT (GPT) 5 IU/L (3-49)
[2017-07-17 15:14] LABS: APPEARANCE SL.HAZY ((CLEAR)); BILIRUBIN NEGATIVE; BLOOD NEGATIVE; COLOR YELLOW ((YELLOW)); GLUCOSE (STRIP) NEGATIVE; KETONES 5; LEUKOCYTES NEGATIVE; NITRITE NEGATIVE; PROTEIN (STRIP) 100; SPECIFIC GRAVITY 1.025 (1.000-1.030)
[2017-07-17 15:15] LABS: EPITHELIAL CELLS RARE /HPF; RED BLOOD CELLS RARE /HPF (0-5); WHITE BLOOD CELLS 0-5 /HPF (0-5)
[2017-07-17 15:16] LABS: BACTERIA NONE SEEN /HPF; HYALINE CASTS 0-5 /LPF; MUCUS NONE SEEN /LPF
[2017-07-17 17:13] VITALS: BP 149/65
== END 2017-07-17 17:13 | disposition home or self-care (01) ==
LOC: EME 11:47
PROVIDERS: Emergency Medicine
DX: R44.0 Auditory hallucinations (principal); R44.1 Visual hallucinations; M46.20 Osteomyelitis of vertebra, site unspecified; G47.00 Insomnia, unspecified; I10 Essential (primary) hypertension; E78.5 Hyperlipidemia, unspecified; J44.9 Chronic obstructive pulmonary disease, unspecified; Z79.82 Long term (current) use of aspirin; Z87.891 Personal history of nicotine dependence
CPT/HCPCS: 70450; 71045; 80053; 81003; 82140; 85025; 85610; 93005; 99281; 99284; J0696; J3370

== ENCOUNTER 2017-07-20 16:20 | Inpatient (IN) | payer OTHER, BC ==
[~2017-07-20] VITALS: Ht 167.6 cm; Wt 58.3 kg
[2017-07-20 18:09] LABS: APPEARANCE CLEAR ((CLEAR)); BILIRUBIN NEGATIVE; BLOOD NEGATIVE; COLOR YELLOW ((YELLOW)); GLUCOSE (STRIP) NEGATIVE; KETONES 5; LEUKOCYTES NEGATIVE; NITRITE NEGATIVE; PROTEIN (STRIP) 30; SPECIFIC GRAVITY 1.013 (1.000-1.030); UCUL ADDED? NO; UROBILINOGEN 0.2 MG/DL (0.2-1.0)
[2017-07-20 18:29] LABS: BASOPHIL (%) 0.8 % (0-1); EOSINOPHIL (%) 2.5 % (0-5); EOSINOPHIL COUNT 0.1 K/uL (0-0.3); HEMATOCRIT 29.1 % (38.0-50.0); HEMOGLOBIN 9.8 G/DL (12.5-16.6); IMMATURE GRANULOCYTE (%) 0.4 % (0.0-0.7); LYMPHOCYTE (%) 17.2 % (15-42); LYMPHOCYTE COUNT 0.9 K/uL (1.0-2.8); MCH 30.5 PG (29.0-34.0); MCHC 33.7 G/DL (30.0-36.0); MCV 90.7 FL (86-99); MONOCYTE (%) 7.9 % (3-12); MONOCYTE COUNT 0.4 K/uL (0-0.8); NEUTROPHIL (%) 71.2 % (45-76); NEUTROPHIL COUNT 3.8 K/uL (1.8-6.4); PLATELET COUNT 148 K/uL (156-360); RBC DIS.WIDTH-CV 12.6 % (11.8-14.6); RED BLOOD COUNT 3.21 M/uL (4.00-5.50); WHITE BLOOD COUNT 5.3 K/uL (4.1-10.2)
[2017-07-20 18:38] LABS: ALBUMIN 3.2 g/dL (3.2-4.8); CHLORIDE 105 mEq/L (99-109); POTASSIUM 3.5 mEq/L (3.7-5.4); SODIUM 143 mEq/L (136-147)
[2017-07-20 18:40] LABS: GLUCOSE 86 mg/dL (70-99); TOTAL PROTEIN 6.8 g/dL (6.4-8.3)
[2017-07-20 18:42] LABS: TOTAL BILIRUBIN 0.8 mg/dL (0.0-1.0)
[2017-07-20 18:44] LABS: ALKALINE PHOSPHATASE 352 IU/L (3-129); CREATININE 0.7 mg/dL (0.6-1.3); GFR ESTIMATE (CALCULATED) > 59 mL/min/ (58.99-99999)
[2017-07-20 18:45] LABS: AST (GOT) 35 IU/L (2-34); UREA NITROGEN (BUN) 16 mg/dL (9-23)
[2017-07-20 18:47] LABS: ALT (GPT) 4 IU/L (3-49); CREATINE KINASE 26 IU/L (1-294); TOTAL CK 26 IU/L (1-294)
[2017-07-20 18:52] LABS: CK-MB 0.9 ng/mL (0.0-4.9); CKMB RELATIVE INDEX 3.5 (0.0-3.9)
[2017-07-20 18:53] LABS: ERTH.SED.RATE 26 MM/HR (0-20)
[2017-07-20 19:47] LABS: C-REACTIVE PROTEIN 36.1 MG/L (0-10)
[2017-07-20] MEDS ORDERED: TYLENOL EXTRA500 MG PO (22:25)
[2017-07-20] MEDS ORDERED: COQ-10100 MG PO (22:32)
[2017-07-20] MEDS ORDERED: QUETIAPINE FUMA25 MG PO (22:48)
[2017-07-21] VITALS (8 sets, daily range): BP systolic 123–195; BP diastolic 57–94
[2017-07-22 03:44] VITALS: BP 133/60
[2017-07-22 07:30] VITALS: BP 158/68
[2017-07-22 11:14] VITALS: BP 160/66
[2017-07-22 11:19] LABS: BASOPHIL (%) 0.7 % (0-1); EOSINOPHIL (%) 3.1 % (0-5); EOSINOPHIL COUNT 0.1 K/uL (0-0.3); HEMATOCRIT 27.5 % (38.0-50.0); HEMOGLOBIN 9.2 G/DL (12.5-16.6); IMMATURE GRANULOCYTE (%) 0.4 % (0.0-0.7); LYMPHOCYTE (%) 15.6 % (15-42); LYMPHOCYTE COUNT 0.7 K/uL (1.0-2.8); MCHC 33.5 G/DL (30.0-36.0); MCV 92.6 FL (86-99); MONOCYTE (%) 5.1 % (3-12); MONOCYTE COUNT 0.2 K/uL (0-0.8); NEUTROPHIL (%) 75.1 % (45-76); NEUTROPHIL COUNT 3.4 K/uL (1.8-6.4); PLATELET COUNT 134 K/uL (156-360); RBC DIS.WIDTH-CV 12.8 % (11.8-14.6); RBC DIS.WIDTH-SD 43.2 % (39-53); RED BLOOD COUNT 2.97 M/uL (4.00-5.50); WHITE BLOOD COUNT 4.5 K/uL (4.1-10.2)
[2017-07-22 13:13] LABS: CHLORIDE 102 MEQ/L (99-109); CREATININE 0.7 MG/DL (0.6-1.3); GFR ESTIMATE (CALCULATED) > 59 mL/min/ (58.99-99999); POTASSIUM 3.4 MEQ/L (3.7-5.4); SODIUM 138 MEQ/L (136-147); UREA NITROGEN (BUN) 15 mg/dL (9-23)
[2017-07-22 13:21] LABS: GLUCOSE 180 mg/dL (70-99)
[2017-07-22 18:19] VITALS: BP 156/73
[2017-07-22 20:03] VITALS: BP 168/77
[2017-07-22 23:58] VITALS: BP 161/70
[2017-07-23 03:54] VITALS: BP 156/67
[2017-07-23 06:06] LABS: BASOPHIL (%) 0.5 % (0-1); EOSINOPHIL (%) 1.6 % (0-5); EOSINOPHIL COUNT 0.1 K/uL (0-0.3); HEMATOCRIT 28.1 % (38.0-50.0); HEMOGLOBIN 9.5 G/DL (12.5-16.6); IMMATURE GRANULOCYTE (%) 0.2 % (0.0-0.7); LYMPHOCYTE (%) 12.2 % (15-42); LYMPHOCYTE COUNT 0.7 K/uL (1.0-2.8); MCH 30.9 PG (29.0-34.0); MCHC 33.8 G/DL (30.0-36.0); MCV 91.5 FL (86-99); MONOCYTE (%) 6.2 % (3-12); MONOCYTE COUNT 0.4 K/uL (0-0.8); NEUTROPHIL (%) 79.3 % (45-76); NEUTROPHIL COUNT 4.5 K/uL (1.8-6.4); PLATELET COUNT 140 K/uL (156-360); RBC DIS.WIDTH-CV 12.9 % (11.8-14.6); RBC DIS.WIDTH-SD 42.5 % (39-53); RED BLOOD COUNT 3.07 M/uL (4.00-5.50); WHITE BLOOD COUNT 5.6 K/uL (4.1-10.2)
[2017-07-23 06:30] LABS: CHLORIDE 104 MEQ/L (99-109); CREATININE 0.6 MG/DL (0.6-1.3); GFR ESTIMATE (CALCULATED) > 59 mL/min/ (58.99-99999); SODIUM 140 MEQ/L (136-147); UREA NITROGEN (BUN) 12 mg/dL (9-23)
[2017-07-23 06:31] LABS: GLUCOSE 119 mg/dL (70-99)
[2017-07-23 07:30] VITALS: BP 142/68
[2017-07-23 11:18] VITALS: BP 168/62
[2017-07-23 15:42] VITALS: BP 183/82
[2017-07-23 19:27] VITALS: BP 183/80
[2017-07-23 23:52] VITALS: BP 186/83
[2017-07-24 03:50] VITALS: BP 166/70
[2017-07-24 07:22] VITALS: BP 144/66
[2017-07-24 15:32] VITALS: BP 140/68
[2017-07-25 06:36] LABS: BASOPHIL (%) 1.1 % (0-1); BASOPHIL COUNT 0.1 K/uL (0-0.1); EOSINOPHIL (%) 5.7 % (0-5); EOSINOPHIL COUNT 0.3 K/uL (0-0.3); HEMATOCRIT 29.1 % (38.0-50.0); HEMOGLOBIN 9.6 G/DL (12.5-16.6); IMMATURE GRANULOCYTE (%) 0.5 % (0.0-0.7); LYMPHOCYTE (%) 20.8 % (15-42); LYMPHOCYTE COUNT 0.9 K/uL (1.0-2.8); MCH 30.2 PG (29.0-34.0); MCV 91.5 FL (86-99); MONOCYTE (%) 6.8 % (3-12); MONOCYTE COUNT 0.3 K/uL (0-0.8); NEUTROPHIL (%) 65.1 % (45-76); NEUTROPHIL COUNT 2.9 K/uL (1.8-6.4); PLATELET COUNT 159 K/uL (156-360); RBC DIS.WIDTH-CV 12.7 % (11.8-14.6); RED BLOOD COUNT 3.18 M/uL (4.00-5.50); WHITE BLOOD COUNT 4.4 K/uL (4.1-10.2)
[2017-07-25 07:02] LABS: CHLORIDE 100 MEQ/L (99-109); CREATININE 0.7 MG/DL (0.6-1.3); GFR ESTIMATE (CALCULATED) > 59 mL/min/ (58.99-99999); GLUCOSE 95 mg/dL (70-99); MAGNESIUM 1.8 mg/dl (1.3-2.7); POTASSIUM 3.9 MEQ/L (3.7-5.4); SODIUM 137 MEQ/L (136-147); UREA NITROGEN (BUN) 20 mg/dL (9-23)
[2017-07-25 07:52] VITALS: BP 165/74
[2017-07-25] MEDS ORDERED: CEFTRIAXONE2 G1 IV (12:12)
[2017-07-25] MEDS ORDERED: QUETIAPINE FUMA50 MG PO (12:12)
== END 2017-07-25 16:11 | disposition home or self-care (01) | DRG 92 ==
LOC: EME 16:20 → EDOF 23:33 → 5SOUTH 23:33 → ENRESERV 23:34 → 5SOUTH 07-21 01:10 → ENPENDDIS 07-25 12:30 → 5SOUTH 07-25 16:11
PROVIDERS: Emergency Medicine; Internal Medicine; Physician Assistant
DX: G92 Toxic encephalopathy (principal); T36.1X5A Adverse effect of cephalosporins and other beta-lactam antibiotics, initial encounter; G47.00 Insomnia, unspecified; M46.24 Osteomyelitis of vertebra, thoracic region; G20 Parkinson's disease; E11.9 Type 2 diabetes mellitus without complications; F32.9 Major depressive disorder, single episode, unspecified; E78.5 Hyperlipidemia, unspecified; J43.9 Emphysema, unspecified; M54.9 Dorsalgia, unspecified; K21.9 Gastro-esophageal reflux disease without esophagitis; I10 Essential (primary) hypertension; R44.3 Hallucinations, unspecified; I71.6 Thoracoabdominal aortic aneurysm, without rupture; F05 Delirium due to known physiological condition; M40.209 Unspecified kyphosis, site unspecified; M45.9 Ankylosing spondylitis of unspecified sites in spine; M40.204 Unspecified kyphosis, thoracic region; F02.80 Dementia in other diseases classified elsewhere, unspecified severity, without behavioral disturbance, psychotic disturbance, mood disturbance, and anxiety; R26.9 Unspecified abnormalities of gait and mobility; E87.6 Hypokalemia; R53.1 Weakness; N40.0 Benign prostatic hyperplasia without lower urinary tract symptoms; M46.44 Discitis, unspecified, thoracic region; Z79.82 Long term (current) use of aspirin; Z79.899 Other long term (current) drug therapy; Z82.0 Family history of epilepsy and other diseases of the nervous system; Z82.49 Family history of ischemic heart disease and other diseases of the circulatory system; Z79.51 Long term (current) use of inhaled steroids; Z87.891 Personal history of nicotine dependence
CPT/HCPCS: 70450; 71045; 72129; 72132; 80048; 80053; 80202; 81003; 82140; 82550; 82553; 82607; 83605; 83735; 84443; 85025; 85610; 85652; 86140; 87040; 93005; 94640; 94640 76; 96365; 96366; 96367; 97530 GP; 99281; 99284; 99285; J0360; J0696; J1630; J1644; J3370; J7030; J7040; J7050

== ENCOUNTER 2017-11-26 10:29 | Inpatient (IN) | payer OTHER, BC ==
[~2017-11-26] VITALS: Ht 165.1 cm; Wt 58.7 kg
[~2017-11-26 10:29] MED LIST changes: +COQ-10100 MG PO; -LISINOPRIL10 MG PO; +QUETIAPINE FUMA25 MG PO; +QUETIAPINE FUMA50 MG PO; +TYLENOL EXTRA500 MG PO
[2017-11-26 11:41] LABS: BASOPHIL (%) 0.5 % (0-1); BASOPHIL COUNT 0.1 K/uL (0-0.1); EOSINOPHIL (%) 1.7 % (0-5); EOSINOPHIL COUNT 0.2 K/uL (0-0.3); HEMATOCRIT 27.1 % (38.0-50.0); HEMOGLOBIN 9.3 G/DL (12.5-16.6); IMMATURE GRANULOCYTE (%) 0.5 % (0.0-0.7); LYMPHOCYTE (%) 8.4 % (15-42); LYMPHOCYTE COUNT 0.8 K/uL (1.0-2.8); MCH 29.4 PG (29.0-34.0); MCHC 34.3 G/DL (30.0-36.0); MCV 85.8 FL (86-99); MONOCYTE (%) 8.7 % (3-12); MONOCYTE COUNT 0.8 K/uL (0-0.8); NEUTROPHIL (%) 80.2 % (45-76); NEUTROPHIL COUNT 7.7 K/uL (1.8-6.4); PLATELET COUNT 117 K/uL (156-360); RBC DIS.WIDTH-CV 13.2 % (11.8-14.6); RBC DIS.WIDTH-SD 41.1 % (39-53); RED BLOOD COUNT 3.16 M/uL (4.00-5.50); WHITE BLOOD COUNT 9.6 K/uL (4.1-10.2)
[2017-11-26 11:48] LABS: INTER. NORMALIZED RATIO 1.2
[2017-11-26 11:50] LABS: PTT 25.4 SEC (25-37)
[2017-11-26 12:13] LABS: CHLORIDE 98 MEQ/L (99-109); POTASSIUM 4.2 MEQ/L (3.7-5.4); SODIUM 135 MEQ/L (136-147)
[2017-11-26 12:18] LABS: CREATININE 0.9 MG/DL (0.6-1.3); GFR ESTIMATE (CALCULATED) > 59 mL/min/ (58.99-99999); GLUCOSE 126 mg/dL (70-99); UREA NITROGEN (BUN) 22 mg/dL (9-23)
[2017-11-26] MEDS ORDERED: AMLODIPINE BES2.5 MG PO (12:22)
[2017-11-26] MEDS ORDERED: IBUPROFEN800 MG PO (12:22)
[2017-11-26 13:06] VITALS: BP 146/67
[2017-11-26 13:21] LABS: DIRECT BILIRUBIN 0.4 mg/dL (0.0-0.3); TOTAL BILIRUBIN 1.2 MG/DL (0.0-1.0)
[2017-11-26 13:26] LABS: ALKALINE PHOSPHATASE 613 IU/L (3-129); ALT (GPT) 17 IU/L (3-49); AST (GOT) 74 IU/L (2-34); TOTAL PROTEIN 7.3 G/DL (6.4-8.3)
[2017-11-26 15:56] VITALS: BP 154/65
[2017-11-26 19:27] VITALS: BP 161/68
[2017-11-26 23:36] VITALS: BP 157/69
[2017-11-27 03:42] VITALS: BP 161/70
[2017-11-27 05:48] LABS: HEMATOCRIT 25.3 % (38.0-50.0); HEMOGLOBIN 8.5 G/DL (12.5-16.6); MCH 29.2 PG (29.0-34.0); MCHC 33.6 G/DL (30.0-36.0); MCV 86.9 FL (86-99); PLATELET COUNT 115 K/uL (156-360); RBC DIS.WIDTH-CV 13.1 % (11.8-14.6); RBC DIS.WIDTH-SD 41.6 % (39-53); RED BLOOD COUNT 2.91 M/uL (4.00-5.50); WHITE BLOOD COUNT 7.5 K/uL (4.1-10.2)
[2017-11-27 06:24] LABS: ALBUMIN 2.5 G/DL (3.2-4.8); ALKALINE PHOSPHATASE 543 IU/L (3-129); ALT (GPT) 11 IU/L (3-49); AST (GOT) 57 IU/L (2-34); C-REACTIVE PROTEIN 126.9 MG/L (0-10); CHLORIDE 99 MEQ/L (99-109); CREATININE 0.7 MG/DL (0.6-1.3); GFR ESTIMATE (CALCULATED) > 59 mL/min/ (58.99-99999); GLUCOSE 109 mg/dL (70-99); SODIUM 136 MEQ/L (136-147); UREA NITROGEN (BUN) 15 mg/dL (9-23)
[2017-11-27 06:30] LABS: POTASSIUM 3.3 MEQ/L (3.7-5.4); TOTAL BILIRUBIN 0.7 MG/DL (0.0-1.0)
[2017-11-27 07:22] VITALS: BP 160/68
[2017-11-27 17:03] LABS: APPEARANCE CLEAR ((CLEAR)); BILIRUBIN NEGATIVE; BLOOD NEGATIVE; COLOR YELLOW ((YELLOW)); GLUCOSE (STRIP) NEGATIVE; KETONES NEGATIVE; LEUKOCYTES NEGATIVE; NITRITE NEGATIVE; PROTEIN (STRIP) 30; SPECIFIC GRAVITY 1.033 (1.000-1.030); UCUL ADDED? NO
[2017-11-28 00:35] VITALS: BP 147/65
[2017-11-28 04:19] VITALS: BP 154/67
[2017-11-28 06:05] LABS: BASOPHIL (%) 0.7 % (0-1); EOSINOPHIL (%) 3.3 % (0-5); EOSINOPHIL COUNT 0.2 K/uL (0-0.3); HEMATOCRIT 24.3 % (38.0-50.0); HEMOGLOBIN 8.1 G/DL (12.5-16.6); IMMATURE GRANULOCYTE (%) 0.7 % (0.0-0.7); LYMPHOCYTE (%) 13.2 % (15-42); LYMPHOCYTE COUNT 0.7 K/uL (1.0-2.8); MCH 29.2 PG (29.0-34.0); MCHC 33.3 G/DL (30.0-36.0); MCV 87.7 FL (86-99); MONOCYTE (%) 8.9 % (3-12); MONOCYTE COUNT 0.5 K/uL (0-0.8); NEUTROPHIL (%) 73.2 % (45-76); NEUTROPHIL COUNT 3.9 K/uL (1.8-6.4); PLATELET COUNT 125 K/uL (156-360); RBC DIS.WIDTH-CV 13.2 % (11.8-14.6); RBC DIS.WIDTH-SD 42.6 % (39-53); RED BLOOD COUNT 2.77 M/uL (4.00-5.50); WHITE BLOOD COUNT 5.4 K/uL (4.1-10.2)
[2017-11-28 06:36] LABS: CHLORIDE 102 MEQ/L (99-109); CREATININE 0.8 MG/DL (0.6-1.3); GFR ESTIMATE (CALCULATED) > 59 mL/min/ (58.99-99999); GLUCOSE 112 mg/dL (70-99); POTASSIUM 3.9 MEQ/L (3.7-5.4); SODIUM 137 MEQ/L (136-147); UREA NITROGEN (BUN) 14 mg/dL (9-23)
[2017-11-28 06:52] LABS: IRON 26 MCG/DL (35-150); TRANSFERRIN (TIBC) 162.6 mg/dL (215-380); TRANSFERRIN SATUR. 16 % (20-55)
[2017-11-28 07:33] VITALS: BP 166/74
[2017-11-28 09:51] LABS: FERRITIN 208 NG/ML (22-322)
[2017-11-28 15:32] VITALS: BP 151/64
[2017-11-28 23:14] VITALS: BP 149/69
[2017-11-29 06:07] LABS: HEMATOCRIT 25.4 % (38.0-50.0); HEMOGLOBIN 8.4 G/DL (12.5-16.6); MCH 29.2 PG (29.0-34.0); MCHC 33.1 G/DL (30.0-36.0); MCV 88.2 FL (86-99); PLATELET COUNT 156 K/uL (156-360); RBC DIS.WIDTH-CV 13.2 % (11.8-14.6); RBC DIS.WIDTH-SD 42.8 % (39-53); RED BLOOD COUNT 2.88 M/uL (4.00-5.50)
[2017-11-29 06:36] LABS: ALT (GPT) 14 IU/L (3-49); AST (GOT) 43 IU/L (2-34); CHLORIDE 99 MEQ/L (99-109); CREATININE 0.7 MG/DL (0.6-1.3); GFR ESTIMATE (CALCULATED) > 59 mL/min/ (58.99-99999); GLUCOSE 118 mg/dL (70-99); POTASSIUM 4.2 MEQ/L (3.7-5.4); SODIUM 137 MEQ/L (136-147); TOTAL PROTEIN 6.8 G/DL (6.4-8.3); UREA NITROGEN (BUN) 17 mg/dL (9-23)
[2017-11-29 06:43] LABS: ALKALINE PHOSPHATASE 706 IU/L (3-129); TOTAL BILIRUBIN 0.5 MG/DL (0.0-1.0)
[2017-11-29 07:12] VITALS: BP 158/66
[2017-11-29 12:16] VITALS: BP 147/67
[2017-11-29 15:35] VITALS: BP 156/70
[2017-11-29 23:17] VITALS: BP 148/65
[2017-11-30 05:46] LABS: HEMATOCRIT 25.9 % (38.0-50.0); HEMOGLOBIN 8.5 G/DL (12.5-16.6); MCH 29.1 PG (29.0-34.0); MCHC 32.8 G/DL (30.0-36.0); MCV 88.7 FL (86-99); PLATELET COUNT 179 K/uL (156-360); RBC DIS.WIDTH-CV 13.5 % (11.8-14.6); RBC DIS.WIDTH-SD 43.8 % (39-53); RED BLOOD COUNT 2.92 M/uL (4.00-5.50); WHITE BLOOD COUNT 5.9 K/uL (4.1-10.2)
[2017-11-30 06:15] LABS: ALBUMIN 2.8 G/DL (3.2-4.8); ALKALINE PHOSPHATASE 631 IU/L (3-129); ALT (GPT) 8 IU/L (3-49); AST (GOT) 47 IU/L (2-34); CHLORIDE 100 MEQ/L (99-109); CREATININE 0.9 MG/DL (0.6-1.3); GFR ESTIMATE (CALCULATED) > 59 mL/min/ (58.99-99999); GLUCOSE 121 mg/dL (70-99); POTASSIUM 4.5 MEQ/L (3.7-5.4); SODIUM 137 MEQ/L (136-147); TOTAL BILIRUBIN 0.4 MG/DL (0.0-1.0); TOTAL PROTEIN 6.7 G/DL (6.4-8.3); UREA NITROGEN (BUN) 19 mg/dL (9-23)
[2017-11-30 07:29] VITALS: BP 148/68
[2017-11-30 08:35] LABS: ERTH.SED.RATE 84 MM/HR (0-20)
== END 2017-11-30 16:58 | disposition home health service (06) | DRG 872 ==
LOC: EME 10:29 → 5SOUTH 12:12 → EDOF 12:12 → ENRESERV 12:24 → 5SOUTH 12:56
PROVIDERS: Family Medicine; Hospitalist; Internal Medicine
DX: A41.89 Other specified sepsis (principal); M46.44 Discitis, unspecified, thoracic region; M46.24 Osteomyelitis of vertebra, thoracic region; K83.0 Cholangitis; E87.6 Hypokalemia; D69.6 Thrombocytopenia, unspecified; D64.9 Anemia, unspecified; F32.9 Major depressive disorder, single episode, unspecified; K21.9 Gastro-esophageal reflux disease without esophagitis; J44.9 Chronic obstructive pulmonary disease, unspecified; I10 Essential (primary) hypertension; G20 Parkinson's disease; E78.5 Hyperlipidemia, unspecified; F41.9 Anxiety disorder, unspecified; G89.29 Other chronic pain; M54.9 Dorsalgia, unspecified; N40.0 Benign prostatic hyperplasia without lower urinary tract symptoms; M06.9 Rheumatoid arthritis, unspecified; Z79.82 Long term (current) use of aspirin; Z87.891 Personal history of nicotine dependence
CPT/HCPCS: 36415; 71046; 72157; 74177; 76705; 76937; 80048; 80053; 80076; 81003; 82728; 83540; 83605; 84466; 85025; 85027; 85610; 85651; 85730; 86140; 87040; 87801; 94640; 99281; 99285; J0692; J0696; J1644; J3480; J7030